=== PATIENT | female | born 1970 | race Caucasian/White ===

== ENCOUNTER 2023-02-17 01:03 | Observation (INO) | payer OTHER ==
[2023-02-17] MEDS ORDERED: KETOROLAC 15 MG/ML 1 ML VIAL IVP STA (03:10)
--- NOTE | 2023-02-17 03:29 | ED ---
General Adult HPI - General Source: patient, EMS Mode of arrival: ambulatory Limitations: no limitations <Adi Zamorano - Last Filed: 02/17/23 04:43> <Desirae Lynn - Last Filed: 02/19/23 09:18> - General Chief complaint: Extremity Injury, Lower Stated complaint: Fall Time Seen by Provider: 02/17/23 02:09 - History of Present Illness Initial comments: 53-year-old female presented to the ED with a chief complaint of leg pain. History limited due to patient's intoxication however patient reports that "all of a sudden was on the ground and did not know what happened "and notes that she was unable to get up due to pain in her left leg. Patient states that she is unsure if she hit her head or loss consciousness. Due to this, bystanders called EMS and sent the patient here further evaluation. At this time, patient only notes pain of her left lower leg. Denies any other injury. No other complaints. (Adi Zamorano) - Related Data Home Medications Medication Instructions Recorded Confirmed Ibuprofen [Motrin Ib] 800 mg PO Q8H PRN 02/17/23 02/17/23 Levothyroxine Sodium [Synthroid] 75 mcg PO DAILY 02/17/23 02/17/23 diphenhydrAMINE HCL [Benadryl] 50 mg PO HS 02/17/23 02/17/23 Allergies Allergy/AdvReac Type Severity Reaction Status Date / Time lamotrigine [From Lamictal] Allergy Rash/Hives Verified 02/17/23 01:08 Review of Systems ROS Other: All systems not noted in ROS Statement are negative. <Adi Zamorano - Last Filed: 02/17/23 04:43> ROS Other: All systems not noted in ROS Statement are negative. <Desirae Lynn - Last Filed: 02/19/23 09:18> ROS Statement: Those systems with pertinent positive or pertinent negative responses have been documented in the HPI. Past Medical History Past Medical History: No Reported History History of Any Multi-Drug Resistant Organisms: None Reported Past Surgical History: Back Surgery Additional Past Surgical History / Comment(s): c-7 Past Psychological History: Depression Smoking Status: Never smoker Past Alcohol Use History: Occasional Past Drug Use History: None Reported <Adi Zamorano - Last Filed: 02/17/23 04:43> General Exam Limitations: no limitations General appearance: alert Head exam: Present: atraumatic, normocephalic, other (No jones sign or raccoon's eyes.) Eye exam: Present: normal appearance, PERRL, EOMI ENT exam: Present: mucous membranes moist Neck exam: Present: other (No midline cervical spinal tenderness palpation.) Respiratory exam: Present: normal lung sounds bilaterally Cardiovascular Exam: Present: regular rate, normal rhythm GI/Abdominal exam: Present: soft (No tenderness to palpation. No rebound guarding or rigidity.) Extremities exam: Present: normal inspection (No pelvic instability. No pain at the hips on log roll.), other (Examination of right upper extremity left upper extremity and right lower extremity showed no tenderness to palpation, crepitus, step-off, or obvious deformity. Examination of the left lower extremity shows tenderness to palpation at the distal portion of the tib-fib however no crepitus, step-off ) Back exam: Present: other (No midline thoracic or lumbar spinal tenderness palpation.) Neurological exam: Present: alert, oriented X3 Skin exam: Present: warm, dry <Adi Zamorano - Last Filed: 02/17/23 04:43> Course Vital Signs 02/17/23 02/17/23 02/17/23 01:09 04:06 06:21 Temperature 97.5 F L 97.9 F Pulse Rate 82 79 82 Respiratory 18 18 16 Rate Blood Pressure 167/94 145/79 135/68 O2 Sat by Pulse 97 98 97 Oximetry 02/17/23 02/17/23 08:48 10:02 Temperature 98.0 F Pulse Rate 81 79 Respiratory 16 17 Rate Blood Pressure 117/59 147/79 O2 Sat by Pulse 99 98 Oximetry Medical Decision Making - Lab Data Result diagrams: 02/17/23 03:27 02/17/23 03:27 <Adi Zamorano - Last Filed: 02/17/23 04:43> - Lab Data Result diagrams: 02/18/23 17:59 02/18/23 05:30 <Desirae Lynn - Last Filed: 02/19/23 09:18> - Medical Decision Making Was pt. sent in by a medical professional or institution (, PA, AIRCRAFT SERVICER, urgent care, hospital, or [place] [facility] [place] facility...) When possible be specific @ -No Did you speak to anyone other than the patient for history (EMS, parent, family, police, friend...)? What history was obtained from this source @ -No Did you review nursing and triage notes (agree or disagree)? Why? @ -I reviewed and agree with nursing and triage notes Were old charts reviewed (outside hosp., previous admission, EMS record, old EKG, old radiological studies, urgent care reports/EKG's, [place] health care facility records)? Report findings @ -No old charts were reviewed Differential Diagnosis (chest pain, altered mental status, abdominal pain women, abdominal pain men, vaginal bleeding, weakness, fever, dyspnea, syncope, headache, dizziness, GI bleed, back pain, seizure, CVA, palpatations, mental health, musculoskeletal)? @ -Differential Musculoskeletal Muscular strain, contusion, ligament sprain, fracture, arthritis, septic arthritis, bursitis, cellulitis, muscle spasm, nerve compression, DVT, arterial occlusion, herpes zoster, electrolyte abnormality, tumor.... This is not meant to be in all inclusive list EKG interpreted by me (3pts min.). @ -None X-rays interpreted by me (1pt min.). @ -X-rays interpreted by me. Chest x-ray shows no acute process. X-ray of pelvis shows no acute process. X-ray of the left tib-fib shows a proximal fibula fracture and distal tibial shaft fracture. CT interpreted by me (1pt min.). @ -CT interpreted by me showed no acute process. U/S interpreted by me (1pt. min.). @ -None done What testing was considered but not performed or refused? (CT, X-rays, U/S, labs)? Why? @ -None What meds were considered but not given or refused? Why? @ -None Did you discuss the management of the patient with other professionals (professionals i.e. LUZ MARIA Elliott, AIRCRAFT SERVICER, lab, RT, psych nurse, high school social science teacher, manager mobility, teacher, aviation ordnance officer, rn case mgr)? Give summary @ -Case discussed with Dr. De La Cruz, who advised short leg splint, admission to medicine nothing by mouth after midnight, and consult to orthopedics. Was smoking cessation discussed for >3mins.? @ -No Was critical care preformed (if so, how long)? @ -No Were there social determinants of health that impacted care today? How? (Homelessness, low income, unemployed, alcoholism, drug addiction, transportation, low edu. Level, literacy, decrease access to med. care, custodial, rehab)? @ -No Was there de-escalation of care discussed even if they declined (Discuss DNR or withdrawal of care, Hospice)? DNR status @ -No What co-morbidities impacted this encounter? (DM, HTN, Smoking, COPD, CAD, Cancer, CVA, ARF, Chemo, Hep., AIDS, mental health diagnosis, sleep apnea, morbid obesity)? @ -None Was patient admitted / discharged? Hospital course, mention meds given and route, prescriptions, significant lab abnormalities, going to OR and other pertinent info. @ -Admission 53-year-old female presents ED with a chief complaint of left leg pain. Patient presenting intoxicated reports that all of a sudden woke up and was unable to stand due to pain in her left leg. Was unable to recall events leading up to this. Imaging of the chest and pelvis showed no acute findings. Imaging of the brain and C-spine show no acute findings. However imaging of the left tib-fib shows a proximal fibula and distal tibial shaft fracture. Patient placed in a short leg splint per recommendation of Dr. De La Cruz. Laboratory studies si gnificant for an alcohol of 265. Patient will be admitted to medicine with consult to orthopedics. Undiagnosed new problem with uncertain prognosis? @ -No Drug Therapy requiring intensive monitoring for toxicity (Heparin, Nitro, Insulin, Cardizem)? @ -No Were any procedures done? @ -No Diagnosis/symptom? @ -Proximal fibula, distal tibial shaft fracture Acute, or Chronic, or Acute on Chronic? @ -Acute Uncomplicated (without systemic symptoms) or Complicated (systemic symptoms)? @ -Uncomplicated Side effects of treatment? @ -No Exacerbation, Progression, or Severe Exacerbation? @ -No Poses a threat to life or bodily function? How? (Chest pain, USA, DC, pneumonia, PE, COPD, DKA, ARF, appy, cholecystitis, CVA, Diverticulitis, Homicidal, Suicidal, threat to staff... and all critical care pts) @ -No (Adi Zamorano) - Lab Data Lab Results 09/03/0302/17/23 02/17/23 Range/Units 03:27 03:27 05:07 WBC 8.8 (3.8-10.6) k/uL RBC 3.98 (3.80-5.40) m/uL Hgb 11.7 (11.4-16.0) gm/dL Hct 36.6 (34.0-46.0) % MCV 91.8 (80.0-100.0) fL MCH 29.5 (25.0-35.0) pg MCHC 32.1 (31.0-37.0) g/dL RDW 13.4 (11.5-15.5) % Plt Count 354 (150-450) k/uL MPV 7.3 Neutrophils % 78 % Lymphocytes % 15 % Monocytes % 6 % Eosinophils % 0 % Basophils % 0 % Neutrophils # 6.8 (1.3-7.7) k/uL Lymphocytes # 1.3 (1.0-4.8) k/uL Monocytes # 0.5 (0-1.0) k/uL Eosinophils # 0.0 (0-0.7) k/uL Basophils # 0.0 (0-0.2) k/uL PT 10.1 (9.0-12.0) sec INR 0.9 (<1.2) APTT 22.1 (22.0-30.0) sec Sodium 131 L (137-145) mmol/L Potassium 4.7 (3.5-5.1) mmol/L Chloride 101 (98-107) mmol/L Carbon Dioxide 21 L (22-30) mmol/L Anion Gap 9 mmol/L BUN 7 (7-17) mg/dL Creatinine 0.54 (0.52-1.04) mg/dL Est GFR (CKD-EPI)AfAm >90 (>60 ml/min/1.73 sqM) Est GFR (CKD-EPI)NonAf >90 (>60 ml/min/1.73 sqM) Glucose 120 H (74-99) mg/dL Calcium 8.6 (8.4-10.2) mg/dL Total Bilirubin 0.5 (0.2-1.3) mg/dL AST 37 H (14-36) U/L ALT 20 (4-34) U/L Alkaline Phosphatase 76 (38-126) U/L Total Protein 7.4 (6.3-8.2) g/dL Albumin 4.0 (3.5-5.0) g/dL Serum Alcohol 265 H* mg/dL Blood Type Blood Type Recheck Bld Type Recheck Status Antibody Screen Spec Expiration Date 02/17/23 Range/Units 05:07 WBC (3.8-10.6) k/uL RBC (3.80-5.40) m/uL Hgb (11.4-16.0) gm/dL Hct (34.0-46.0) % MCV (80.0-100.0) fL MCH (25.0-35.0) pg MCHC (31.0-37.0) g/dL RDW (11.5-15.5) % Plt Count (150-450) k/uL MPV Neutrophils % % Lymphocytes % % Monocytes % % Eosinophils % % Basophils % % Neutrophils # (1.3-7.7) k/uL Lymphocytes # (1.0-4.8) k/uL Monocytes # (0-1.0) k/uL Eosinophils # (0-0.7) k/uL Basophils # (0-0.2) k/uL PT (9.0-12.0) sec INR (<1.2) APTT (22.0-30.0) sec Sodium (137-145) mmol/L Potassium (3.5-5.1) mmol/L Chloride (98-107) mmol/L Carbon Dioxide (22-30) mmol/L Anion Gap mmol/L BUN (7-17) mg/dL Creatinine (0.52-1.04) mg/dL Est GFR (CKD-EPI)AfAm (>60 ml/min/1.73 sqM) Est GFR (CKD-EPI)NonAf (>60 ml/min/1.73 sqM) Glucose (74-99) mg/dL Calcium (8.4-10.2) mg/dL Total Bilirubin (0.2-1.3) mg/dL AST (14-36) U/L ALT (4-34) U/L Alkaline Phosphatase (38-126) U/L Total Protein (6.3-8.2) g/dL Albumin (3.5-5.0) g/dL Serum Alcohol mg/dL Blood Type O Positive Blood Type Recheck O Pos Bld Type Recheck Status No Antibody Screen NEGATIVE Spec Expiration Date 02/20/20232306 Disposition Time of Disposition: 04:43 <Adi Zamorano - Last Filed: 02/17/23 04:43> <Desirae Lynn - Last Filed: 02/19/23 09:18> Clinical Impression: Tibia fracture, Fibula fracture Disposition: ADMITTED IP TO THIS HOSP Condition: Good
[2023-02-17] MEDS ORDERED: MORPHINE SULFATE 4 MG/ML SYRINGE IVP STA (03:39)
[2023-02-17 03:45] LABS: Basophils % (A) 0 %; Eosinophils % (A) 0 %; HCT 36.6 % (34.0-46.0); HGB 11.7 gm/dL (11.4-16.0); Lymphocytes # (A) 1.3 k/uL (1.0-4.8); Lymphocytes % (A) 15 %; MCH 29.5 pg (25.0-35.0); MCHC 32.1 g/dL (31.0-37.0); MCV 91.8 fL (80.0-100.0); Mean Platelet Volume 7.3; Monocytes # (A) 0.5 k/uL (0-1.0); Monocytes % (A) 6 %; Neutrophils # (A) 6.8 k/uL (1.3-7.7); Neutrophils % (A) 78 %; Platelet Count 354 k/uL (150-450); RBC 3.98 m/uL (3.80-5.40); RDW 13.4 % (11.5-15.5); WBC 8.8 k/uL (3.8-10.6)
[2023-02-17 03:51] LABS: ALT 20 U/L (4-34); AST 37 U/L (14-36); African American GFR (CKD) >90 (>60 ml/min/1.73 sqM); Alkaline Phosphatase 76 U/L (38-126); Anion Gap 9 mmol/L; Blood Urea Nitrogen 7 mg/dL (7-17); Calcium 8.6 mg/dL (8.4-10.2); Carbon Dioxide 21 mmol/L (22-30); Chloride 101 mmol/L (98-107); Glucose 120 mg/dL (74-99); Non-African American GFR(CKD) >90 (>60 ml/min/1.73 sqM); Potassium 4.7 mmol/L (3.5-5.1); Sodium 131 mmol/L (137-145); Total Bilirubin 0.5 mg/dL (0.2-1.3); Total Protein 7.4 g/dL (6.3-8.2)
[2023-02-17 03:53] LABS: Alcohol 265 mg/dL
[2023-02-17] MEDS ORDERED: ACETAMINOPHEN TAB 325 MG TAB PO PRN (04:50)
[2023-02-17] MEDS ORDERED: ONDANSETRON 4 MG/2 ML VIAL IVP PRN (04:50)
[2023-02-17] MEDS ORDERED: HYDROmorphone 0.5 MG/0.5 ML SYRINGE IVP PRN (04:50)
[2023-02-17] MEDS ORDERED: NALOXONE 0.4 MG/ML 1 ML VIAL IV PRN (04:50)
[2023-02-17] MEDS: SODIUM CHLORIDE 0.9% 1,000 ML IV SCH ×2 (05:07→18:25)
[2023-02-17 05:49] LABS: INR 0.9 (<1.2); Partial Thromboplastin Time 22.1 sec (22.0-30.0); Prothrombin Time 10.1 sec (9.0-12.0)
--- NOTE | 2023-02-17 08:30 | CT ---
EXAMINATION TYPE: CT brain goran wo con DATE OF EXAM: 02/17/2023 COMPARISON: 01/27/2012 HISTORY: Fall acute mental status changes CT DLP: 1417.5 mGycm, Automated exposure control for dose reduction was used. CONTRAST: Patient injected with 0 mL of Isovue 300. CT of the brain is performed utilizing 3 mm thick sections through the posterior fossa and 3 mm thick sections through the remaining calvarium. Study is performed within 24 hours of arrival to the hospital. No abnormal hyperdensity is present to suggest an acute intracranial hemorrhage. No mass lesion is evident. No acute infarcts are evident. Minimal chronic-appearing periventricular white matter ischemic martinez es are present. Ventricles and sulci are appropriate for the patient age. Paranasal sinuses and mastoid air cells within the [id number] are clear. IMPRESSIONS: 1. No acute intracranial process. CT cervical spine. COMPARISON: 01/27/2012 CT of the cervical spine is performed in the axial plane at 2 mm thick sections. Reconstructed image s in the coronal, and sagittal plane are reviewed on the computer. No acute fractures are evident. Vertebral body alignment is normal. There is anterior cervical fusion C6-7. Loss of disc height of the disc fusion. Remaining discs have minimal degenerative disc change. Vertebral body heights are preserved. No spinal canal stenosis is evident. No neural foraminal stenosis is evident. IMPRESSION: 1. No acute osseous abnormality cervical spine
[2023-02-17] MEDS: HYDROmorphone 1 MG/ML 1 ML SYRINGE IVP PRN ×4 (10:03→23:27)
--- NOTE | 2023-02-17 10:14 | XR ---
EXAMINATION TYPE: XR tibia fibula LT DATE OF EXAM: 02/17/2023 COMPARISON: None HISTORY: Fall, pain TECHNIQUE: 2 view left tibia and fibula FINDINGS: There is an viral fracture of the distal tibia. There is a spiral fracture of the proximal fibula. Interosseous disruption is likely present. Ankle joint space appears preserved. No additional fractures evident. IMPRESSION: 1. Spiral fractures distal tibia and proximal fibula.
--- NOTE | 2023-02-17 10:15 | XR ---
EXAMINATION TYPE: XR pelvis AP view DATE OF EXAM: 02/17/2023 COMPARISON: None HISTORY: Fall, pain TECHNIQUE: AP pelvis FINDINGS: Fecal debris is at the level of the rectum. Normal bowel gas is present Femoral heads articulate with the acetabulum. Joint spaces are preserved. Symphysis pubis and sacroil iac joints are normal. IMPRESSION: 1. No acute osseous abnormality of the pelvis
--- NOTE | 2023-02-17 10:16 | XR ---
EXAMINATION TYPE: XR chest 1V portable DATE OF EXAM: 02/17/2023 COMPARISON: None INDICATION: Fall, pain TECHNIQUE: Single frontal view of the chest is obtained. FINDINGS: The heart size is normal. The pulmonary vasculature is normal. The lungs are clear. No pneumothorax is evident. No displaced rib fractures are identified. IMPRESSION: 1. No acute pulmonary process.
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
--- NOTE | 2023-02-17 11:25 | XR ---
EXAMINATION TYPE: XR tibia fibula LT DATE OF EXAM: 02/17/2023 COMPARISON: Earlier exam HISTORY: Prior fractures, splinting TECHNIQUE: 2 view left tibia and fibula FINDINGS: There is been reduction of the fibular and tibia fractures to have improved alignment and p ositioning. There is some step-off remaining of the distal tibial fracture. Ankle mortise remains int act. No new fractures are evident. IMPRESSION: 1. Improved alignment and positioning following reduction. Step-off of the distal tibia remains pres ent with lateral displacement of the distal tibial fracture.
[2023-02-17] MEDS ORDERED: LORazepam 0.5 MG TAB PO PRN (11:34)
[2023-02-17] MEDS ORDERED: THIAMINE 100 MG/ML 2 ML VIAL IM STA (11:34)
[2023-02-17] MEDS ORDERED: LORazepam 1 MG TAB PO PRN (11:34)
[2023-02-17] MEDS: HYDROcodone/APAP 5-325MG 1 EACH TAB PO PRN ×2 (11:55→20:21)
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
[2023-02-17] MEDS: diphenhydrAMINE 25 MG CAP PO SCH (20:20)
[2023-02-17] MEDS: HEPARIN SODIUM,PORCINE 5,000 UNIT/ML 1 ML VIAL SQ SCH (20:21)
[2023-02-18] MEDS: HYDROmorphone 1 MG/ML 1 ML SYRINGE IVP PRN ×4 (02:39→20:58)
[2023-02-18] MEDS: LEVOTHYROXINE 75 MCG TAB PO SCH (05:43)
[2023-02-18] MEDS: HYDROcodone/APAP 5-325MG 1 EACH TAB PO PRN (08:06)
[2023-02-18 09:20] LABS: Basophils # (A) 0.03 X 10*3/uL (0.00-0.10); Basophils % (A) 0.4 %; Eosinophils # (A) 0.01 X 10*3/uL (0.04-0.35); Eosinophils % (A) 0.1 %; HCT 31.1 % (37.2-46.3); HGB 9.7 d/dL (12.0-15.0); Lymphocytes % (A) 31.9 %; MCH 28.7 pg (27.0-32.0); MCHC 31.2 d/dL (32.0-37.0); Mean Platelet Volume 10.1 FL (9.5-12.2); Monocytes # (A) 0.41 X 10*3/uL (0.20-1.00); Monocytes % (A) 5.5 %; NRBC Per 100 WBC 0 X 10*3/uL (0.00-0.01); Neutrophils # (A) 4.65 X 10*3/uL (1.80-7.70); Neutrophils % (A) 61.8 %; Platelet Count 365 X 10*3/uL (140-440); RBC 3.38 X 10*6/uL (4.10-5.20); RDW 13.6 % (11.5-14.5); WBC 7.52 X 10*3/uL (4.50-10.00)
[2023-02-18] MEDS: SODIUM CHLORIDE 0.9% 1,000 ML IV SCH ×2 (09:27→20:57)
[2023-02-18 09:36] LABS: ALT 13 U/L (8-44); AST 21 U/L (13-35); Albumin 3.5 d/dL (3.8-4.9); Albumin/Globulin Ratio 1.75 Ratio (1.60-3.17); Alkaline Phosphatase 68 U/L (41-126); Blood Urea Nitrogen 10.4 mg/dL (9.0-27.0); Calcium 8.3 mg/dL (8.7-10.3); Carbon Dioxide 23.8 mmol/L (21.6-31.8); Chloride 102 mmol/L (96-109); Glucose 92 mg/dL (70-110); Potassium 3.6 mmol/L (3.5-5.5); Sodium 135 mmol/L (135-145); Total Bilirubin 0.3 mg/dL (0.3-1.2); Total Protein 5.5 d/dL (6.2-8.2)
[2023-02-18] MEDS ORDERED: cloNIDine HCL 0.1 MG TAB PO PRN (10:02)
[2023-02-18] MEDS: THIAMINE 100 MG TAB PO SCH (10:08)
[2023-02-18] MEDS: HEPARIN SODIUM,PORCINE 5,000 UNIT/ML 1 ML VIAL SQ SCH ×2 (10:08→20:57)
--- NOTE | 2023-02-18 10:53 | P.PN ---
Progress Note - Text Progress Note Date: 02/18/23 Orthopedics: History of present illness: Patient is a very pleasant 53-year-old female who is seen and examined for follow-up evaluation of her left lower extremity. She is known to have sustained a left proximal spiral fibular fracture and left distal spiral tibia fracture status post fall. She is currently on bed rest and nothing by mouth in anticipation for surgical intervention for her left lower extremity today. She is currently awake, alert, oriented and lying comfortably in bed. She has remained on bed rest with a Tom catheter intact. She is given a splint intact over her left lower extremity. Her pain is being adequately controlled. Agent has been cleared for surgery by medicine. She is admitted to medicine. Physical Exam: Patient is awake, alert, and oriented 3 Vital signs stable Good chest excursion with deep inspiration and expiration Left lower extremity has a splint intact Neurovascular intact left lower extremity Patient is able to wiggle toes of the left foot without significant difficulty Left thigh is soft nontender to palpation Patient does have pain with the left lower extremity below the knee with any range of motion Tom catheter intact Pertinent studies: X-rays of the left tibia and fibula taken on 02/17/2023 with splint intact: Improved alignment and positioning following reduction; step-off deformity of the distal tibia remains present with lateral displacement X-ray of the left tibia and fibula taken on 02/17/2023: Evidence of a spiral fractures of the left proximal fibula and left distal tibia X-ray of the pelvis taken on 02/17/2023: No fracture or dislocation within the pelvis CT of the head and cervical spine taken on 02/17/2023: Evidence of anterior cervical decompression and fusion at C6-7 with retained hardware; cervical alignment appears to be medically maintained; no evidence of vertebral body compression fracture; no obvious spinal stenosis identified; no obvious fractures identified; no acute intracranial process Assessment: Left proximal spiral fibular fracture Left distal spiral tibia fracture Status post fall Inability ambulate on left lower extremity due to fractures Alcohol intoxication at presentation History C6-7 anterior cervical decompression and fusion Plan: 1. We will continue with her plan as set forth yesterday. Patient previously sustained a fall while walking home resulting in fractures to her left proximal fibula and distal tibia. She's been unable to be on the left lower extremity since that time. We did discuss the instability of her fracture most significantly with her tibia. We did discuss that based on her fracture and instability that without surgical intervention to stabilize her fracture she'll most likely have long-term significant difficulty with trying to ambulate on her left lower extremity and stabilization of her fracture gives her the best opport unity increase her mobility and ambulation. Patient states after further evaluation she would like to proceed forward with surgical intervention. She is nothing by mouth status in anticipation for surgical intervention scheduled for today, 02/18/2023. She has been cleared for surgery by medicine. We did discuss surgical intervention would be an open reduction and internal fixation of the left tibia with intramedullary nail fixation. Tom catheter is currently in place. Patient may stay on bed rest. Patient has had a splint placed over her left lower extremity. She will keep the splint intact. Currently oral medications are on hold. Patient may continue pain control IV medications as needed.
[2023-02-18] MEDS: LORazepam 1 MG TAB PO PRN (11:22)
[2023-02-18] MEDS ORDERED: MIDAZOLAM 2 MG/2 ML VIAL ONE (13:01)
[2023-02-18] MEDS ORDERED: LIDOCAINE 2% INJ 20 MG/ML (2 ML VIAL) ONE (13:01)
[2023-02-18] MEDS ORDERED: PROPOFOL 10 MG/ML 20 ML VIAL IV ONE (13:01)
[2023-02-18] MEDS ORDERED: KETOROLAC 15 MG/ML 1 ML VIAL ONE (13:01)
[2023-02-18] MEDS ORDERED: ONDANSETRON 4 MG/2 ML VIAL ONE (13:01)
[2023-02-18] MEDS ORDERED: IV FLUID CONTINUATION 900 ML IV ONE (13:01)
[2023-02-18] MEDS ORDERED: fentaNYL (PF) 50 MCG/ML 2 ML AMP ONE (13:01)
[2023-02-18] MEDS ORDERED: DEXAMETHASONE SOD PHOSPHATE 4 MG/ML 1 ML VIAL ONE (13:01)
[2023-02-18] MEDS ORDERED: ceFAZolin 1,000 MG in SODIUM CHLORIDE 0.9% 1,000 ML IRRIGATION ONE (13:36)
[2023-02-18] MEDS ORDERED: LACTATED RINGERS 1,000 ML IV ONE (14:26)
--- NOTE | 2023-02-18 15:09 | XR ---
Left tibia and fibula. History: open reduction and internal fixation of a distal left tibial fracture. TECHNIQUE: 4 fluoroscopic spot films and 1 minute 56 seconds fluoroscopy was provided for open reduct ion internal fixation the left tibial fracture. FINDINGS: Spot films and fluoroscopy demonstrate open reduction internal fixation of a distal left tibial spira l metaphyseal fracture with an intramedullary netta and proximal and distal pins. There is near anatom ic alignment.
[2023-02-18] MEDS ORDERED: HYDROmorphone 0.5 MG/0.5 ML SYRINGE IVP PRN (15:15)
[2023-02-18] MEDS ORDERED: ONDANSETRON 4 MG/2 ML VIAL IVP PRN (15:15)
[2023-02-18] MEDS ORDERED: SODIUM CHLORIDE 0.9% 1,000 ML IV SCH (15:15)
[2023-02-18] MEDS ORDERED: NALOXONE 0.4 MG/ML 1 ML VIAL IV PRN (15:15)
[2023-02-18] MEDS ORDERED: BENZOCAINE/MENTHOL LOZENG 1 EACH LOZENGE MUCOUS MEM PRN (15:15)
[2023-02-18] MEDS ORDERED: ACETAMINOPHEN TAB 325 MG TAB PO PRN (15:15)
--- NOTE | 2023-02-18 15:34 | P.OP ---
Date of Procedure: 02/18/23 Preoperative Diagnosis: Left distal tibia traumatic spiral shaft fracture with displacement and proximal fibula fracture Postoperative Diagnosis: Same Anesthesia: GETA Pathology: none sent Condition: stable Disposition: PACU Description of Procedure: Preoperative diagnosis: Left distal tibia traumatic spiral shaft fracture with displacement and proximal fibula fracture Postoperative diagnosis: Same Procedure: Left tibia open reduction internal fixation with intramedullary rodding Use of fluoroscopic guidance Surgeon: Dr. Jono Mirt.: Adi Tavares who is present that the entire the case persistence during positioning dissection exposure placement of hardware and closure Anesthesia: Gen. per Dr. Rojas Estimated blood loss: Approximately 200 mL Components implanted: [employer] intramedullary tibial netta measuring 8/2 mm in diameter by 320 mm in length with 4 screws 2 proximal and 2 distal Tourniquet time: Approximately 58 minutes Fluoroscopy time: Approximately minute and a half Disposition: To recovery room in good stable condition Operative indications The patient sustained a injury and suffered a left lower extremity fracture at her distal tibia and proximal pole fibula which was displaced and angulated. She had been intoxicated at the time and does not exactly remember the fall. She believes she was standing and walking when she fell. She had some acute pain in her left leg. She denies any prior issues with her left leg or pain in her leg. She is able to ambulate and had angulation at her leg. She presented to the emergency room where she was found to have a displaced distal tibial shaft spiral fracture and proximal fibula fracture. We were involved in the case in regard to her tibia and fibula fracture. After evaluation it was determined that they would be a candidate for reduction and internal fixation and stabilization via surgical intervention likely with a tibial netta. This would give them the best chance of mobilization and ambulation. We discussed the range of treatment options from conservative to surgical. They elected proceed with surgical intervention. We answered their questions to the best of our ability healing which they can understand. They signed an informed consent. Operative summary After obtaining informed consent evaluation by anesthesia, preoperative evaluation and clearance for medical service, the patient was identified and prepped appropriately and the surgical site was marked. There brought to the operating room where the given appropriate anesthesia by the anesthesia department in standard fashion without any complications. Once the anesthesia was established we were able to position the patient. The patient was placed in supine position being careful to pad any bony prominences and pressure points. She was prepped and draped in normal standard fashion prepping her left lower extremity free for mobilization and positioning. We had placed a nonsterile tourniquet at her proximal thigh which was draped out as well. An appropriate keystone protocol appropriate timeout was completed. We will to proceed with the surgery. The leg was elevated and the tourniquet was inflated to 300 mmHg. He was utilized approximately 58 minutes. I was able to visualize the fracture site which was held and closed reduced position appropriately. Leg was lay flat and I prepared to establish for the proximal insertion site. An incision was made over the patella and left knee. All bleeders were appropriately managed. The peritenon was carefully incised longitudinally and the fibers of the patella were split bluntly to gain access to the proximal tibia. I was able to insert a tissue protector through the patellar tendon and down to the proximal tibia. With this completed I then used a starting guidepin to establish the appropriate position at the midline of the tibia and appropriate angulation with the leg held in flexed position. I was able to advance the guide pin appropriately through the proximal tibia under C-arm guidance. With it in good position I again protected the patellar tendon and drilled the appropriate starting hole with the probe at starting drill. This was removed and the drill was checked and found to be in good position. At this point I turned my attention to the fracture site itself. We are able to get good closed reduction. The fracture was at the distal tibia toward the beginning of the metaphysis. I I felt that we needed to hold the fracture stable during the reaming process and so I used a [id number]-[id number] clamp and establish small sites to place a clamp at the fracture site. I held it in good closed reduction and I was able to apply the clamp to get good reduction at the fracture site good alignment good position with excellent length. This was good provisional fixation and stabilization. I was able to then moved to the proximal tibia at the starting point and advance a guidewire through the proximal tibia into the intramedullary canal across the fracture site and into the distal tibia maintaining excellent alignment and position at the fracture site. We then did progressive reaming over the guidewire while protecting the patellar tendon. Able to ream up to a 10 mm reamer for placement of an 8-1/2 mm netta. We measured appropriately and chose a 32 severe netta by 8-1/2 mm. The wound was irrigated and suctioned dry. The netta was placed on the appropriate jig and holding the leg in hyperflexed position I was able to place the netta over the guidewire into the tibia across the fracture site and into the distal tibia and excellent alignment and position maintaining excellent position of the fracture site. It was seated well. With this in good position within prepared for placing proximal and distal locking screws. I used the drill sleeve and drill guide to establish appropriate drill holes and screws 2 proximally had good alignment good position with good bony purchase. The proximal jig was then removed and we had good motion at the knee with good position at the proximal netta in the tibia. I turned my attention to the distal locking screws. I used a freehand technique with C-arm guidance and I was able place 2 screws from medial to lateral position into the distal locking holes at the distal tibia. The screws were measured checked and placed in good alignment good position with excellent bony purchase. The bone clamp was removed and we had good stability at the fracture site without any evidence of motion at the fracture. Good stability across fracture site with the hardware in good alignment good position at the left tibia. The wound was copiously irrigated and suctioned dry. The knee joint was irrigated copiously with irrigation as were the other inci nany sites. I closed the peritenon with 4-0 Monocryl carefully. Subcu tissue was closed with 2-0 Vicryl and the skin was closed with jerry wounds were cleaned and dried with dressed with Adaptic 4 x 4's ABDs labral and Arsh wrap. The tourniquet was dropped at approximately 58 minutes. She had good revascularization into her foot and toes. Drapes were broken down. The patient was then transferred back to their hospital bed being careful to maintain the hip and C-spine alignment and airway. Once stable to patient was transferred back to the postanesthesia care unit to be readmitted for pain control and DVT prophylaxis medical management and monitoring and mobilization we will continue follow patient closely throughout their postoperative course.
[2023-02-18 18:40] LABS: Basophils % (A) 0 %; Eosinophils % (A) 0 %; HCT 34.6 % (34.0-46.0); HGB 10.7 gm/dL (11.4-16.0); Hypochromasia Slight; Lymphocytes # (A) 0.6 k/uL (1.0-4.8); Lymphocytes % (A) 5 %; MCH 29.1 pg (25.0-35.0); MCV 93.9 fL (80.0-100.0); Mean Platelet Volume 7.1; Monocytes # (A) 0.6 k/uL (0-1.0); Monocytes % (A) 5 %; Neutrophils # (A) 11.1 k/uL (1.3-7.7); Neutrophils % (A) 89 %; Platelet Count 330 k/uL (150-450); RBC 3.69 m/uL (3.80-5.40); RDW 13.4 % (11.5-15.5); WBC 12.4 k/uL (3.8-10.6)
--- NOTE | 2023-02-18 18:52 | FL ---
Intraoperative/procedural fluoroscopic services were provided. Total fluoroscopy time is 1 minute 56 seconds with a total of 4 submitted images to PACS. Please see the operative/procedural note for furt her details. DAP: 1.8940 Gycm2
[2023-02-18] MEDS: ASPIRIN 81 MG PO SCH (20:57)
[2023-02-18] MEDS: diphenhydrAMINE 25 MG CAP PO SCH (20:57)
[2023-02-19] MEDS: HYDROmorphone 1 MG/ML 1 ML SYRINGE IVP PRN ×3 (01:01→10:57)
--- NOTE | 2023-02-19 02:07 | PN ---
PROGRESS NOTE DATE OF SERVICE: 02/18/2023 SUBJECTIVE: This is a 53-year-old woman, who was admitted after left proximal fibular and distal tibial fractures, slated for surgery today. No chest pain. No palpitation. OBJECTIVE: VITAL SIGNS: Pulse is 86, blood pressure 128/60, respirations 17. CHEST: Clear to auscultation. CARDIOVASCULAR: S1, S2. ABDOMEN: Soft. LEGS: Left leg, status post fracture. LABORATORY DATA: Reviewed. ASSESSMENT: 1. Status post left proximal fibular and distal tibial fracture for surgery. 2. Acute alcohol intoxication, present on admission. 3. Hyponatremia, mild. 4. Depression. 5. History of back surgery. 6. History of cervical degenerative joint disease. RECOMMENDATIONS: Recommend to continue current medications, continue symptomatic treatment. Closely follow. Recommend repeat labs in the morning. Further recommendations to follow. MMODL / IJN: [id number] /
[2023-02-19 05:32] LABS: Glucose,Whole Blood 146 mg/dL (70-110)
[2023-02-19] MEDS: LEVOTHYROXINE 75 MCG TAB PO SCH (06:12)
[2023-02-19] MEDS: LORazepam 1 MG TAB PO PRN ×2 (08:27→16:14)
[2023-02-19] MEDS: SODIUM CHLORIDE 0.9% 1,000 ML IV SCH ×2 (08:28→23:28)
[2023-02-19] MEDS: THIAMINE 100 MG TAB PO SCH (09:06)
[2023-02-19] MEDS: SENNOSIDES-DOCUSATE SODIUM 1 EACH TAB PO SCH (09:06)
[2023-02-19] MEDS: HEPARIN SODIUM,PORCINE 5,000 UNIT/ML 1 ML VIAL SQ SCH ×2 (09:06→20:23)
[2023-02-19] MEDS: ASPIRIN 81 MG PO SCH ×2 (09:06→20:23)
--- NOTE | 2023-02-19 09:43 | P.PN ---
Progress Note - Text Progress Note Date: 02/19/23 Orthopedics: History of present illness: Patient is a very pleasant 53-year-old female who is seen today bedside for follow up evaluation of her left lower extremity. She is status post ORIF of the left tibia with intramedullary nail fixation performed yesterday, 02/18/2023. Her left lower extremity is dressed following surgical intervention. Dressing remains clean, dry, and intact. She does continue to have some pain in her left lower extremity was states her pain is better controlled postoperatively. She is requiring oral and IV medications for pain control. She is nonweightbearing on the left lower extremity. Her Tom cath remains intact. She is having some difficulty with anxiety. She was seen by medicine. Patient states medicine is planning to prescribe anxiety medication. Patient is on aspirin 81 mg twice a day for anticoagulation postoperatively. She will remain on this medication with the next 4 weeks. Physical Exam: Patient is awake, alert, and oriented 3 Vital signs stable Good chest excursion with deep inspiration and expiration Left lower extremity has a splint intact Neurovascular intact left lower extremity Patient is able to wiggle toes of the left foot without significant difficulty Left thigh is soft nontender to palpation Surgical dressing is intact of the left lower extremity below the knee to the ankle Surgical dressing is clean, dry, and intact Tom catheter intact Pertinent studies: X-rays of the left tibia and fibula taken on 02/17/2023 with splint intact: Improved alignment and positioning following reduction; step-off deformity of the distal tibia remains present with lateral displacement X-ray of the left tibia and fibula taken on 02/17/2023: Evidence of a spiral fractures of the left proximal fibula and left distal tibia X-ray of the pelvis taken on 02/17/2023: No fracture or dislocation within the pelvis CT of the head and cervical spine taken on 02/17/2023: Evidence of anterior cervical decompression and fusion at C6-7 with retained hardware; cervical alignment appears to be medically maintained; no evidence of vertebral body compression fracture; no obvious spinal stenosis identified; no obvious fractures identified; no acute intracranial process Assessment: Status post ORIF with left tibial intramedullary nail fixation for left distal spiral tibia fracture Left proximal spiral fibular fracture Anxiety Status post fall Inability ambulate on left lower extremity due to fractures Alcohol intoxication at presentation History C6-7 anterior cervical decompression and fusion Plan: 1. Patient is status post ORIF with left tibial intramedullary nail fixation for left distal spiral tibia fracture. She'll remain strict nonweightbearing on the right lower extremity. She should keep her dressing over the left lower extremity clean, dry, and intact. She is encouraged to elevate her left lower extremity and may apply ice over the dressing for comfort support as needed. She may utilize a walker to aid in ambulation. Patient does not have a walker at home. We will plan to prescribe a walker. We will also plan for physical therapy to work with the patient to help increase her mobility and ambulation. 2. Patient will continue to be seen and examined by medicine. Patient is having some difficulty with anxiety. This is being managed by medicine. 3. Her Tom catheter remains intact. We'll plan to discontinue her Tom catheter today. 4. She will continue with aspirin 81 mg twice a day postoperatively over the next 4 weeks for anticoagulation 5. Patient is requiring oral and IV medications for pain control. We'll plan to wean off IV narcotic medication in anticipation for discharge home tomorrow. We will plan to prescribe oral narcotic medications at time of discharge.
[2023-02-19 10:55] LABS: Basophils # (A) 0.01 X 10*3/uL (0.00-0.10); Basophils % (A) 0.1 %; Eosinophils # (A) 0 X 10*3/uL (0.04-0.35); Eosinophils % (A) 0 %; HCT 27.3 % (37.2-46.3); HGB 8.5 d/dL (12.0-15.0); Lymphocytes # (A) 1.39 X 10*3/uL (0.90-5.00); Lymphocytes % (A) 16.1 %; MCH 28.7 pg (27.0-32.0); MCHC 31.1 d/dL (32.0-37.0); MCV 92.2 FL (80.0-97.0); Monocytes # (A) 0.56 X 10*3/uL (0.20-1.00); Monocytes % (A) 6.5 %; NRBC Per 100 WBC 0 X 10*3/uL (0.00-0.01); Neutrophils # (A) 6.62 X 10*3/uL (1.80-7.70); Platelet Count 297 X 10*3/uL (140-440); RBC 2.96 X 10*6/uL (4.10-5.20); RDW 13.6 % (11.5-14.5); WBC 8.61 X 10*3/uL (4.50-10.00)
[2023-02-19 11:12] LABS: Blood Urea Nitrogen 8.7 mg/dL (9.0-27.0); Chloride 104 mmol/L (96-109); Glucose 117 mg/dL (70-110); Sodium 136 mmol/L (135-145)
[2023-02-19 11:13] LABS: Calcium 8.1 mg/dL (8.7-10.3); Carbon Dioxide 25.6 mmol/L (21.6-31.8)
[2023-02-19] MEDS: HYDROcodone/APAP 5-325MG 1 EACH TAB PO PRN ×2 (16:14→20:23)
[2023-02-19] MEDS: diphenhydrAMINE 25 MG CAP PO SCH (20:23)
[2023-02-20] MEDS: LORazepam 1 MG TAB PO PRN ×2 (00:36→08:09)
[2023-02-20] MEDS: HYDROcodone/APAP 5-325MG 1 EACH TAB PO PRN ×3 (00:36→13:33)
[2023-02-20] MEDS: LEVOTHYROXINE 75 MCG TAB PO SCH (06:46)
[2023-02-20] MEDS: SENNOSIDES-DOCUSATE SODIUM 1 EACH TAB PO SCH (08:56)
[2023-02-20] MEDS: THIAMINE 100 MG TAB PO SCH (08:56)
[2023-02-20] MEDS: ASPIRIN 81 MG PO SCH (08:56)
[2023-02-20] MEDS: HEPARIN SODIUM,PORCINE 5,000 UNIT/ML 1 ML VIAL SQ SCH (08:56)
--- NOTE | 2023-02-20 09:10 | P.DS ---
Providers Date of admission: 02/17/23 05:10 Expected date of discharge: 02/20/23 Attending physician: Esau Tuttle Consults: 02/17/23 04:50 Consult Physician Urgent Consulting Provider: Raad De La Cruz Consult Reason/Comments: prox fibula distal tibua fx Do you want consulting provider notified?: Yes Primary care physician: Abdon Rodriguez - Discharge Diagnosis(es) (1) Closed left tibial fracture Current Visit: Yes Status: Acute (2) Closed left fibular fracture Current Visit: Yes Status: Acute (3) Status post fall Current Visit: Yes Status: Acute (4) Difficulty in walking Current Visit: Yes Status: Acute (5) Alcohol intoxication Current Visit: Yes Status: Acute (6) History of cervical spinal arthrodesis Current Visit: Yes Status: Acute Hospital Course: This is a pleasant 53-year-old female who presented with left distal spiral tibia fracture and left proximal spiral fibular fracture status post fall. She was admitted further treatment and evaluation. She underwent ORIF of the left tibia with intramedullary nail fixation on 02/18/2023. She does continue to have some pain in her left lower extremity postoperatively but her pain has been actively controlled and she has been improving. A prescription was written for a walker. This was delivered to the bedside yesterday. She has been working with physical therapy and plans to work with physical therapy again today. Patient does feel she would be ready for discharge today. Patient will be discharged home. Condition on day of discharge stable. Patient was cleared for surgery by medicine. Patient has had some anxiety during her admission to the hospital. She has been prescribed Ativan by medicine. We did discuss patient will be seen and examined by medicine prior to her discharge home today and they can determine anxiety medication prescription at discharge. Patient is toe-touch weightbearing only on the left lower extremity. She may ambulate with assistance of a walker. She is to keep her dressing over the left lower extremity clean, dry, and intact. She may elevate the left lower extremity for comfort and support as needed. She may apply ice over the left lower extremity dressing for comfort support as needed. We will plan to have her follow up this coming 02/23/2023 for further evaluation. MAPS has been reviewed today, 02/20/2023, with an Overall Overdose Risk Score of 260. An "Opiod Start Talking" Form has been signed and placed in the patient's chart. A prescription has been written for hydrocodone 5 mg/325 mg, 1 tab every 4 hours as needed for acute pain, dispense #42. Patient is also given a prescription for aspirin 81 mg 1 tab twice a day, dispensed #60 for anticoagulation postoperatively. She should take this pre scription until completion. She may resume her other previously prescribed home medications while avoiding anti-inflammatory medication over the next 6-8 weeks postoperatively. Physical Exam: Postoperative day #2 Patient is awake, alert, and oriented 3 Vital signs stable Good chest excursion with deep inspiration and expiration Left lower extremity has a splint intact Neurovascular intact left lower extremity Patient is able to wiggle toes of the left foot without significant difficulty Left thigh is soft nontender to palpation Surgical dressing is intact of the left lower extremity below the knee to the ankle Surgical dressing is clean, dry, and intact Tom catheter intact Procedures: ORIF of the left tibia with intramedullary nail fixation on 02/18/2023 Patient Condition at Discharge: Good Plan - Discharge Summary New Discharge Prescriptions: New Aspirin 81 mg PO BID #60 tab HYDROcodone/APAP 5-325MG [[place] 5] 1 each PO Q4HR PRN #42 tab PRN Reason: Pain No Action Ibuprofen [Motrin Ib] 800 mg PO Q8H PRN PRN Reason: Pain diphenhydrAMINE HCL [Benadryl] 50 mg PO HS Levothyroxine Sodium [Synthroid] 75 mcg PO DAILY Discharge Medication List Ibuprofen [Motrin Ib] 800 mg PO Q8H PRN 02/17/23 [History] Levothyroxine Sodium [Synthroid] 75 mcg PO DAILY 02/17/23 [History] diphenhydrAMINE HCL [Benadryl] 50 mg PO HS 02/17/23 [History] Aspirin 81 mg PO BID #60 tab 02/20/23 [Rx] HYDROcodone/APAP 5-325MG [[place] 5] 1 each PO Q4HR PRN #42 tab 02/20/23 [Rx] Follow up Appointment(s)/Referral(s): Adi Tavares PAC [PHYSICIAN ADJUNCT SOCIOLOGY PROFESSOR] - 1 Week (Patient will follow up with Adi De La Cruz this friday 02/23 at [facility] following discharge. ) Abdon Rodriguez DO [Primary Care Provider] - 1-2 days Activity/Diet/Wound Care/Special Instructions: 1. Toe-touch weightbearing on the left lower extremity. 2. Keep dressing over the left lower extremity clean, dry, and intact 3. Elevate left lower extremity for comfort support as needed 4. Apply ice over the left lower extremity dressing for comfort support as needed 5. Utilize walker to aid in ambulation 6. Take medications as prescribed 7. Patient should avoid driving until at least after her first follow-up appointment 8. Avoid anti-inflammatory medications over the next 6-8 weeks postoperatively Discharge Disposition: HOME SELF-CARE
--- NOTE | 2023-02-20 10:41 | P.PN ---
Subjective Progress Note Date: 02/19/23 Patient is a 53-year-old female with a known history of alcohol abuse presents to ER status post fall and found have left proximal fibula and distal tibial fractures. 02/19/2023. Patient is currently sitting in the chair. Postoperative day 1. Status post ORIF left tibia with intramedullary rodding. Patient is anxious. Was able to work with PT this morning but could not walk. Tom catheter is in place. Patient is awake and oriented 3 otherwise. Currently on room air. No nausea vomiting abdominal pain or diarrhea. No cough or sputum production. Laboratory data showed WBC 0.6 hemoglobin 8.5 and platelets 297. BUN 8.7 creatinine 0.5. Current medications reviewed. Objective - Vital Signs Vital signs: Vital Signs Temp 98.3 F 02/19/23 07:00 Pulse 88 02/19/23 07:00 Resp 17 02/19/23 07:00 BP 116/68 02/19/23 07:00 Pulse Ox 98 02/19/23 07:00 FiO2 Intake & Output 02/18/23 02/19/23 02/19/23 18:59 06:59 18:59 Intake Total 1401 Output Total 600 100 Balance 801 -100 Intake: IV 1401 Output: Urine 400 100 Estimated Blood Loss 200 Other: Voiding Method Indwelling Catheter Indwelling Catheter Indwelling Catheter - Exam PHYSICAL EXAMINATION: Patient is lying in the bed comfortably, no acute distress, awake alert and oriented.. HEENT: Normocephalic. Neck is supple. Pupils reactive. Nostrils clear. Oral ca vity is moist. Neck reveals no JVD, carotid bruits, or thyromegaly. CHEST EXAMINATION: Trachea is central. Symmetrical expansion. Bibasilar diminished sounds. Otherwise Lung tony clear to auscultation and percussion. CARDIAC: Normal S1, S2 with no gallops. No murmurs ABDOMEN: Soft. Bowel sounds normal. No organomegaly. No abdominal bruits. Extremities: reveal no edema. No clubbing or cyanosis Neurologically awake, alert, oriented x3 with well-coordinated movements. No focal deficits noted Skin: No rash or skin lesions. Psychiatric: Coperative. Nonsuicidal, anxious. Musculoskeletal: No joint swelling or deformity. Left lower extremity cast in place.. - Labs CBC & Chem 7: 02/19/23 06:34 02/19/23 06:34 Labs: Abnormal Lab Results - Last 24 Hours (Table) 02/18/23 02/19/23 02/19/23 Range/Units 17:59 05:31 06:34 WBC 12.4 H (3.8-10.6) k/uL RBC 3.69 L 2.96 L (3.80-5.40) m/uL Hgb 10.7 L 8.5 L (11.4-16.0) gm/dL Hct 27.3 L (37.2-46.3) % MCHC 31.1 L (32.0-37.0) d/dL Neutrophils # 11.1 H (1.3-7.7) k/uL Lymphocytes # 0.6 L (1.0-4.8) k/uL Eosinophils # 0 L (0.04-0.35) X 10*3/uL BUN (9.0-27.0) mg/dL Creatinine (0.6-1.5) mg/dL Glucose (70-110) mg/dL POC Glucose (mg/dL) 146 H (70-110) mg/dL Calcium (8.7-10.3) mg/dL 02/19/23 Range/Units 06:34 WBC (3.8-10.6) k/uL RBC (3.80-5.40) m/uL Hgb (11.4-16.0) gm/dL Hct (37.2-46.3) % MCHC (32.0-37.0) d/dL Neutrophils # (1.3-7.7) k/uL Lymphocytes # (1.0-4.8) k/uL Eosinophils # (0.04-0.35) X 10*3/uL BUN 8.7 L (9.0-27.0) mg/dL Creatinine 0.5 L (0.6-1.5) mg/dL Glucose 117 H (70-110) mg/dL POC Glucose (mg/dL) (70-110) mg/dL Calcium 8.1 L (8.7-10.3) mg/dL Assessment and Plan Assessment: Status post fall. Left proximal fibular and distal tibial fracture. Status post ORIF with intramedullary rodding. Postoperative day 1 Acute alcohol intoxication on admission Anxiety/depression Mild hyponatremia resolved now History of chronic back pain Cervical Degenerative disc disease Hypothyroidism DVT prophylaxis Plan: Patient will be continued on pain management, bowel regimen and encourage ambulation. Encourage incentive spirometry. Tom catheter to be discontinued once patient is able to participate in PT today. Will be continued on alcohol withdrawal protocol. Orthopedic surgery is on board. Continue to follow closely. Time with Patient: Greater than 30
[2023-02-20] MEDS: SODIUM CHLORIDE 0.9% 1,000 ML IV SCH (12:45)
[2023-02-20 13:18] LABS: Blood Urea Nitrogen 5.6 mg/dL (9.0-27.0); Calcium 7.9 mg/dL (8.7-10.3); Chloride 106 mmol/L (96-109); Glucose 85 mg/dL (70-110); Potassium 3.6 mmol/L (3.5-5.5); Sodium 139 mmol/L (135-145)
[2023-02-20 13:28] VITALS: BP 174/81; PULSE 100; RESP 18; TEMP 98.5
== END 2023-02-20 13:55 | disposition home or self-care (01) ==
LOC: EC 01:03 → 6NMEDSUR 05:10 → 4SSUR 10:13
PROVIDERS: ADMIT Hospitalist; ATTEND Hospitalist
DX: S82.242A Displaced spiral fracture of shaft of left tibia, initial encounter for closed fracture (principal); S82.442A Displaced spiral fracture of shaft of left fibula, initial encounter for closed fracture; W19.XXXA Unspecified fall, initial encounter; F10.129 Alcohol abuse with intoxication, unspecified; Y90.8 Blood alcohol level of 240 mg/100 ml or more; E87.1 Hypo-osmolality and hyponatremia; F41.9 Anxiety disorder, unspecified; F32.A Depression, unspecified; E03.9 Hypothyroidism, unspecified; M50.30 Other cervical disc degeneration, unspecified cervical region; Z98.1 Arthrodesis status; Z79.890 Hormone replacement therapy
CPT/HCPCS: 96376 ×2; 96372; 96375 ×2; 96374; 99285; 36415; 93005; 97116; 97162; 97535; 97167; 86900; 86901; 80053 ×2; 80048 ×2; 85025 ×3; 85610; 85730; 86850; 80320; 72170; 73590 ×2; 71045; 72125; 70450; 27827; G0378 ×4; C1713; J2270; J1644 ×4; J3411; J0690 ×3; J2405; J1170 ×3; J1885